=== PATIENT | female | born 1960 | race Caucasian/White ===

== ENCOUNTER 2017-10-20 11:21 | Emergency (ER) | payer BC ==
[~2017-10-20] VITALS: Ht 154.9 cm; Wt 91.6 kg
[2017-10-20 11:33] VITALS: BP 129/71
--- NOTE | 2017-10-20 11:43 | NUR ---
PT AMBULATED TO BED 9 Addendum: 10/20/17 at 1148 by [facility] BED 10
[2017-10-20] MEDS ORDERED: NACL 0.9% 500 ML IV ONE (11:44)
[2017-10-20] MEDS ORDERED: KETOROLAC 30 MG/ML VIAL IVP ONE (11:45)
--- NOTE | 2017-10-20 11:48 | NUR ---
c/o constant right groin pain with occasionally radiating to right flank x yesterday. Patient also reports of hematuria and diarrhea. Patient denies any fevers or n/v. DENIES N/V/D; SKIN IS PINK/WARM/DRY; AAOX4 WITH EVEN AND STEADY GAIT; LUNGS CLEAR BL; HR EVEN AND REGULAR; PT DENIES ANY FEVER, CP, SOB, OR COUGH AT THIS TIME; PATIENT STATES PAIN OF 6/10 AT THIS TIME; VSS; PATIENT POSITIONED FOR COMFORT; HOB ELEVATED; BEDRAILS UP X2; BED DOWN. ER MD MADE AWARE OF PT STATUS.
[2017-10-20] MEDS ORDERED: fentaNYL 0.05 MG/ML VIAL IVP ONE ×2 (13:15→15:15)
--- NOTE | 2017-10-20 13:45 | NUR ---
PT RESTING IN BED, STATED PAIN RELIVED.
[2017-10-20 14:16] LABS: APPEARANCE,URINE HAZY (CLEAR); BILIRUBIN,URINE NEGATIVE (NEGATIVE); BLOOD, URINE 3+ (NEGATIVE); COLOR,URINE YELLOW (YELLOW); LEUKOCYTE ESTERASE ,URINE NEGATIVE (NEGATIVE); NITRITE, URINE NEGATIVE (NEGATIVE); UGLUCOSE NEGATIVE (NEGATIVE)
[2017-10-20 14:37] LABS: RBC,URINE 50-80 /HPF (0-5); WBC,URINE 0-5 (RARE) /HPF (0-5)
[2017-10-20 15:45] VITALS: BP 140/84
--- NOTE | 2017-10-20 15:45 | NUR ---
Patient discharged with v/s stable. Written and verbal after care instructions given and explained. Patient alert, oriented and verbalized understanding of instructions. Ambulatory with steady gait. All questions addressed prior to discharge. ID band removed. Patient advised to follow up with PMD. Rx of TRAMADOL AND MOTRIN given. Patient educated on indication of medication including possible reaction and side effects. Opportunity to ask questions provided and answered. IV D/C INTACT.
== END 2017-10-20 15:45 | disposition home or self-care (01) ==
LOC: MED 11:21
DX: N20.0 Calculus of kidney (principal); Z88.0 Allergy status to penicillin; Z88.2 Allergy status to sulfonamides
CPT/HCPCS: 74176; 81001; 81025; 82948; 96361; 96374; 96375; 96376; 99285; J1885; J3010; J7030

== ENCOUNTER 2017-10-25 08:30 | Emergency (ER) | payer BC ==
[~2017-10-25] VITALS: Ht 172.7 cm; Wt 90.7 kg
[2017-10-25 08:39] VITALS: BP 103/63
--- NOTE | 2017-10-25 08:44 | NUR ---
PT TAKEN TO BED 12.
--- NOTE | 2017-10-25 08:50 | NUR ---
PATIENT PRESENTS TO ED WITH RLQ PAIN AND HEMATURIA. PATIENT WAS SEEN IN OUR ER 4 DAYS AGO FOR SAME ISSUE. PT STATES SHE IS STILL SEEING BLOOD IN HER URINE AND PAIN HAS NOT SUBSIDED. PATIENT REPORTS NAUSEA, VOMITING 1 DAY AGO, AND DIARRHEA 2 DAYS AGO; SKIN IS PINK/WARM/DRY; AAOX4 WITH EVEN AND STEADY GAIT; LUNGS CLEAR BL; HR EVEN AND REGULAR; PT DENIES ANY FEVER, CP, SOB, OR COUGH AT THIS TIME; PATIENT STATES PAIN OF 6/10 AT THIS TIME; VSS; PATIENT POSITIONED FOR COMFORT; HOB ELEVATED; BEDRAILS UP X2; BED DOWN. ER MD MADE AWARE OF PT STATUS.
[2017-10-25] MEDS ORDERED: ONDANSETRON 4 MG/2 ML VIAL IVP ONE (09:00)
[2017-10-25] MEDS ORDERED: NACL 0.9% 1,000 ML IV ONE ×2 (09:00→10:05)
[2017-10-25] MEDS ORDERED: KETOROLAC 30 MG/ML VIAL IVP ONE (09:00)
[2017-10-25 09:36] LABS: BILIRUBIN,URINE 2+ (NEGATIVE); BLOOD, URINE 3+ (NEGATIVE); COLOR,URINE YELLOW (YELLOW); LEUKOCYTE ESTERASE ,URINE NEGATIVE (NEGATIVE); NITRITE, URINE NEGATIVE (NEGATIVE); UGLUCOSE NEGATIVE (NEGATIVE)
[2017-10-25 09:43] LABS: ANION GAP 16.5 (8-16); CARBON DIOXIDE 22.4 mmol/L (21-32); CREATININE 0.8 mg/dL (0.6-1.3); POTASSIUM 3.9 mmol/L (3.5-5.1)
[2017-10-25] MEDS ORDERED: MORPHINE SULFATE 4 MG/ML SYR IVP ONE ×2 (09:55→11:20)
[2017-10-25 09:58] LABS: ALBUMIN 3.2 g/dL (3.4-5.0); TOTAL BILIRUBIN 0.4 mg/dL (0.0-1.0)
[2017-10-25 10:10] LABS: BASOPHILS # (AUTO) 0.3 K/uL (0.00-0.22); BASOPHILS % (AUTO) 1.2 % (0.0-2.0); EOSINOPHILS # (AUTO) 0.5 K/uL (0-0.4); EOSINOPHILS % (AUTO) 2.4 % (0.0-4.0); HEMATOCRIT 38.9 % (36-48); LYMPHOCYTES # (AUTO) 3.5 K/uL (2.5-16.5); LYMPHOCYTES % (AUTO) 15.7 % (20.5-51.1); MEAN CORPUSCULAR HEMOGLOBIN 27 pg (27-31); MEAN CORPUSCULAR HGB CONC 31 g/dL (33-37); MEAN CORPUSCULAR VOLUME 86.6 fL (80-94); MONOCYTES # (AUTO) 1.1 K/uL (0.8-1.0); NEUTROPHILS # (AUTO) 16.7 K/uL (1.8-7.7); NEUTROPHILS % (AUTO) 75.7 % (42.2-75.2); PLATELET COUNT (AUTO) 333 K/uL (140-450); RED BLOOD CELL COUNT(AUTO) 4.48 MIL/uL (4.20-5.40); RED CELL DISTRIBUTION WIDTH 17.1 % (11.6-13.7)
[2017-10-25 10:12] LABS: APPEARANCE,URINE SLIGHTLY HAZY (CLEAR)
[2017-10-25 10:14] LABS: RBC,URINE TOO NUMEROUS TO COUN /HPF (0-5); WBC,URINE 0-5 (RARE) /HPF (0-5)
[2017-10-25] MEDS ORDERED: CEFEPIME 1,000 MG in DEXTROSE 5% 50 ML IV ONE (10:20)
[2017-10-25] MEDS ORDERED: METO25TA PO (10:27)
[2017-10-25] MEDS ORDERED: TRAZ-286 PO (10:27)
[2017-10-25] MEDS ORDERED: SITA100T8 PO (10:27)
[2017-10-25] MEDS ORDERED: LIP80 PO (10:27)
[2017-10-25] MEDS ORDERED: INSU100S22 SC (10:27)
[2017-10-25] MEDS ORDERED: CEFEPIME 1,000 MG VIAL ONE (10:29)
--- NOTE | 2017-10-25 10:45 | NUR ---
SPOKE WITH LUTHER AT [facility], SHE ADVISED INSURANCE WOULD NOT AUTHORIZE ADMIT. ADVISED DR. SIDHU.
--- NOTE | 2017-10-25 11:00 | NUR ---
SPOKE WITH GARRY EVENT MGR AT [facility]. SHE WANTED UPDATE ON PATIENT'S VITALS. ADVISED A CONTRACTED DOCTOR WOULD BE GETTING IN TOUCH WITH OUR ER DOCTOR TO SPEAK ABOUT THE PATIENT. ADVISED DR. SIDHU.
[2017-10-25] MEDS ORDERED: NACL 0.9% 1,000 ML IV SCH (11:16)
[2017-10-25] MEDS ORDERED: ACETAMINOPHEN 325 MG TAB PO PRN (11:20)
[2017-10-25] MEDS ORDERED: ONDANSETRON 4 MG/2 ML VIAL IVP PRN (11:20)
[2017-10-25] MEDS ORDERED: MORPHINE SULFATE 4 MG/ML SYR IVP PRN (11:20)
[2017-10-25] MEDS ORDERED: HYDROcodone/APAP 5/325 MG 1 TAB TAB PO PRN (11:20)
--- NOTE | 2017-10-25 11:44 | NUR ---
MEME UPDATED ON HER STATUS; SHE IS WAITING FOR THE [employer]IC NURSE ON TELE; WARM BLANKET PROVIDED. PLACED IN POSITION OF COMFORT. ONE SIDE RAIL UP. LIGHTS DIMMED IN ROOM. CALL LIGHT WITHIN REACH. ALL NEEDS ADDRESSED.
--- NOTE | 2017-10-25 12:50 | NUR ---
Patient will be admitted to care of Dr. Clark. Admited to Med/Surg. Will go to room 104-A. Belongings list completed. All belongings placed into a bag and sent with patient. Pt transferred to the floor via w/c. Report given to Yeison FRANCISCO.
--- NOTE | 2017-10-25 12:54 | NUR ---
Pt transferred to Med/Surg via .
[2017-10-25 13:30] VITALS: BP 115/64
--- NOTE | 2017-10-25 13:30 | NUR ---
RECEIVED BEDSIDE REPORT FROM ER NURSE, PT IS AAOX4. AMBULATORY. [place] SPEAKING. NO S/S OF DISTRESS NOTED ON ROOM AIR, IV TO L AC 20G, INTACT, PATENT, FLUSHED WELL. PT CC RIGHT FLANK PAIN 6/10, N/V X 5DAYS. MRSA DONE. ORIENTED PT TO ROOM. VITALS TAKEN. INITIAL ASSESSMENT DONE, ALL SAFETY PRECAUTION MET WILL CONTINUE TO MONITOR.
--- NOTE | 2017-10-25 14:10 | NUR ---
PT'S IV PUMP BEEPING FREQUENTLY, WILL START A NEW IV.
--- NOTE | 2017-10-25 14:40 | NUR ---
NS BOLUS FINISHED. NEW IV CATH LEFT WRIST 22 G. NEW NS 1L BAG STARTED AT 100ML/HR. Addendum: 10/25/17 at 1932 by Benedicto Eldridge RN 1L NS BOLUS FINISHED. NEW IV CATH LEFT WRIST 22 G. NEW NS 1L BAG STARTED AT 100ML/HR.
[2017-10-25] MEDS ORDERED: DEXTROSE 50% 50 ML SYR IVP PRN (14:55)
[2017-10-25] MEDS ORDERED: INSULIN LISPRO SLIDING SCALE 100 UNITS/ML VIAL SUBQ PRN (14:55)
--- NOTE | 2017-10-25 15:11 | NUR ---
DR DOHERTY STATED THAT HE GOT A TEXT FROM GARRY PHILLIPS OF [facility] THAT SHE WANTS THE PATIENT TO BE TRANSFERRED TO THE CONTRACTED [facility] ACCEPTING DR WILL BE DR MOREJON
--- NOTE | 2017-10-25 15:59 | NUR ---
LEVOFLOXACIN 50ML IVPB FINISHED. Addendum: 11/09/17 at 1351 by Benedicto Eldridge RN WRONG PT.
[2017-10-25 16:00] VITALS: BP 118/68
[2017-10-25] MEDS ORDERED: LEVOFLOXACIN 500 MG/D5W PREMIX 100 ML IV SCH (16:00)
--- NOTE | 2017-10-25 16:29 | NUR ---
LEVOFLOXACIN 100ML IVPB FINISHED. PT TOLERATED WELL. NO S/S ANAPHYLACTIC RXN NOTED.
[2017-10-25] MEDS ORDERED: BLOOD GLUCOSE MONITORING 1 DEV DEV FS SCH (16:30)
[2017-10-25 17:12] LABS: APPEARANCE,URINE CLEAR (CLEAR); BILIRUBIN,URINE 1+ (NEGATIVE); BLOOD, URINE NEGATIVE (NEGATIVE); COLOR,URINE YELLOW (YELLOW); LEUKOCYTE ESTERASE ,URINE NEGATIVE (NEGATIVE); NITRITE, URINE NEGATIVE (NEGATIVE); UGLUCOSE NEGATIVE (NEGATIVE)
--- NOTE | 2017-10-25 18:05 | NUR ---
CALLED [phone] EX [phone]. REPORT GIVEN TO NURSE ANTHONY. PT GOING TO RM [address] MOREJON. STU[facility]O [facility] TIME 1929 BY [facility].
--- NOTE | 2017-10-25 18:32 | NUR ---
NO VOMITING SINCE PT GOT TO THE FLOOR. PT HAD DINNER, CLEAR LIQ DIET. NO S/S OF ACUTE DISTRESS.
--- NOTE | 2017-10-25 18:59 | NUR ---
PT HEPLOCKED, 350ML NS INFUSED.
--- NOTE | 2017-10-25 19:00 | NUR ---
DISCHARGE TEACHING PROVIDED. PT VERBALIZED UNDERSTANDING. DISCHARGE PACKET WITH CD PROVIDED.
--- NOTE | 2017-10-25 19:00 | NUR ---
PT TRANSFERRED TO [facility]. PT IV CATHS ARE HEP LOCKED. PT LEFT WITH ALL HER BELONGINGS. PT IN STABLE CONDITION.
[2017-10-25] MEDS ORDERED: INSULIN LANTUS 100 UNITS/ML 10 ML VIAL SUBQ SCH (21:00)
[2017-10-25] MEDS ORDERED: traZODone 50 MG TAB PO SCH (21:00)
[2017-10-25] MEDS ORDERED: METOPROLOL 50 MG TAB PO SCH (21:00)
[2017-10-26] MEDS ORDERED: ENOXAPARIN 40 MG/0.4 ML SYR SUBQ SCH (09:00)
== END 2017-10-25 19:00 | disposition short-term general hospital (02) ==
LOC: MED 08:30 → MTU 11:20
PROVIDERS: ADMIT Internal Medicine; ATTEND Internal Medicine
DX: R10.9 Unspecified abdominal pain (principal); R11.2 Nausea with vomiting, unspecified; N20.1 Calculus of ureter; E86.0 Dehydration; E11.9 Type 2 diabetes mellitus without complications; I10 Essential (primary) hypertension; N39.0 Urinary tract infection, site not specified; M51.36 Other intervertebral disc degeneration, lumbar region; K57.90 Diverticulosis of intestine, part unspecified, without perforation or abscess without bleeding; E66.9 Obesity, unspecified; Z68.30 Body mass index [BMI] 30.0-30.9, adult
CPT/HCPCS: 36415; 80053; 81001; 81003; 81025; 82150; 82948; 83605; 83690; 84484; 85025; 87040; 87081; 87086; 93005; 96361; 96365; 96367; 96375; 96376; 99285; G0378; J0692; J1815; J1885; J1956; J2270; J2405; J7030; J7060

== ENCOUNTER 2018-06-15 17:32 | Observation (INO) | payer BC ==
[~2018-06-15] VITALS: Ht 172.7 cm; Wt 100.7 kg
[~2018-06-15 17:32] MED LIST: INSU100S22 SC; LIP80 PO; METO25TA PO; SITA100T8 PO; TRAZ-343 PO
[2018-06-15 17:39] VITALS: BP 141/92
--- NOTE | 2018-06-15 17:49 | NUR ---
Patient ambulated to bed 8. RN evaluating patient at bedside.
--- NOTE | 2018-06-15 18:05 | NUR ---
58 YO F BIB SELF W/ C/O LEFT MID BACK PAIN RADIATING TO LEFT GROIN X 2 DAYS. PT REPORTS THAT SHE HAS HX W/ KIDNEY STONES AND STATES THIS FEELS MORE LIKE A KIDNEY STONE THAN A UTI. DENIES DYSURIA, REPORTS SMALL AMOUNT OF SPOTTING/HEMATURIA. REPORTS NAUSEA, DENIES VOMITING. INTERMITTENT DIARRHEA. DENIES FEVER. HX KIDNEY STONES, 4 LITHOTRIPSIES/UTEROSCOPY (LAST 2016), HYSTERECTOMY, 10 KNEE SURGERIES, 3 C-SEC, COPD, DM2, HTN, RA, HIGH CHOLESTROL, DEGENERATIVE DISC DISEASE RX LIPITOR, OMEPRAZOLE, TRAZADONE, ASA, PLAQUERIL, METOPROLOL, LANTUS, VENTOLIN, PATIENT STATES PAIN OF 7/10 AT THIS TIME. PATIENT POSITIONED FOR COMFORT; HOB ELEVATED; BEDRAILS UP X2; BED DOWN. ER MD MADE AWARE OF PT STATUS.
[2018-06-15] MEDS ORDERED: NACL 0.9% 1,000 ML IV SCH (18:22)
[2018-06-15] MEDS ORDERED: KETOROLAC 30 MG/ML VIAL IVP ONE ×2 (18:25→22:15)
[2018-06-15 19:02] LABS: RED BLOOD CELL COUNT(AUTO) 5.06 MIL/uL (4.20-5.40)
[2018-06-15 19:04] LABS: HEMATOCRIT 40.1 % (36-48); HEMOGLOBIN 12.2 g/dL (12.0-16.0); MEAN CORPUSCULAR HEMOGLOBIN 24 pg (27-31); MEAN CORPUSCULAR HGB CONC 30 g/dL (33-37); MEAN CORPUSCULAR VOLUME 79.2 fL (80-94); PLATELET COUNT (AUTO) 308 K/uL (140-450); RED CELL DISTRIBUTION WIDTH 18.4 % (11.6-13.7); WHITE BLOOD COUNT (AUTO) 15.4 K/uL (4.8-10.8)
[2018-06-15 19:18] LABS: ANION GAP 10.3 (8-16); CARBON DIOXIDE 26.6 mmol/L (21-32); CREATININE 0.6 mg/dL (0.6-1.3); POTASSIUM 3.9 mmol/L (3.5-5.1)
[2018-06-15 19:19] LABS: APPEARANCE,URINE HAZY (CLEAR); BILIRUBIN,URINE NEGATIVE (NEGATIVE); BLOOD, URINE 3+ (NEGATIVE); COLOR,URINE YELLOW (YELLOW); LEUKOCYTE ESTERASE ,URINE NEGATIVE (NEGATIVE); NITRITE, URINE NEGATIVE (NEGATIVE); UGLUCOSE NEGATIVE (NEGATIVE)
[2018-06-15 19:25] LABS: ALBUMIN 3.6 g/dL (3.4-5.0); TOTAL BILIRUBIN 0.2 mg/dL (0.0-1.0)
--- NOTE | 2018-06-15 19:27 | NUR ---
Pt report given to CHANCE FRANCISCO. Transfer of care at this time.
[2018-06-15 19:28] LABS: EOSINOPHILS % (MANUAL) 6 % (0-4); LYMPHOCYTES % (MANUAL) 36 % (20-46); MONOCYTES % (MANUAL) 8 % (5-12)
[2018-06-15 19:32] LABS: RBC,URINE >100 /HPF (0-5); WBC,URINE 0-5 (RARE) /HPF (0-5)
[2018-06-15] MEDS ORDERED: MORPHINE SULFATE 4 MG/ML SYR IVP ONE ×2 (20:40→22:15)
--- NOTE | 2018-06-15 21:28 | NUR ---
Patient okay to eat per Dr. Euceda. Pt given apple juice and crackers.
--- NOTE | 2018-06-15 22:48 | NUR ---
PT FINISHED DINNER, AND REPORTS THAT PAIN IS DOWN TO 7/10. VSS. SAFETY PRECAUTIONS IN PLACE. WILL CONTINUE TO MONITOR
--- NOTE | 2018-06-15 23:11 | NUR ---
RECIEVED X-RAY CD FOR PATIENT.
--- NOTE | 2018-06-16 00:37 | NUR ---
PT IS RESTING IN BED. PT STATES THAT PAIN IS AT A MANAGEBLE 4/10. VSS. SAFETY PRECAUTIONS IN PLACE, WILL CONTINUE TO MONITOR.
[2018-06-16] MEDS ORDERED: LIP80 PO (01:32)
[2018-06-16] MEDS ORDERED: OMEP40EC14 PO (01:34)
[2018-06-16] MEDS ORDERED: TRAZ-343 PO (01:35)
[2018-06-16] MEDS ORDERED: ASPI81EC97 PO (01:35)
[2018-06-16] MEDS ORDERED: HYDR200T5 PO (01:36)
[2018-06-16] MEDS ORDERED: METO50TA20 PO (01:37)
[2018-06-16] MEDS ORDERED: ALBU0.0912 IH (01:38)
[2018-06-16] MEDS ORDERED: INSU100S22 SUBQ (01:38)
[2018-06-16] MEDS ORDERED: MORPHINE SULFATE 4 MG/ML SYR IVP ONE (01:45)
[2018-06-16] MEDS: NACL 0.9% 1,000 ML IV SCH ×2 (01:48→11:48)
--- NOTE | 2018-06-16 01:48 | NUR ---
IVF STARTED AND INFUSING WELL.
[2018-06-16] MEDS ORDERED: LEVOFLOXACIN 500 MG/D5W PREMIX 100 ML IV SCH (01:50)
[2018-06-16] MEDS ORDERED: ACETAMINOPHEN 325 MG TAB PO PRN (01:50)
[2018-06-16] MEDS ORDERED: ONDANSETRON 4 MG/2 ML VIAL IVP PRN (01:50)
--- NOTE | 2018-06-16 02:20 | NUR ---
PT ARRIVED AT UNIT VIA GURNEY, PT AMBULATED TO BED, TOLERATED WELL, REPORT RECEIVED FROM ER NURSE, IV TO L AC 20G PATENT, INTACT, DATED, PT ON ROOM AIR, NO SOB, PT STATED HAVING PAIN 9/10 TO THE L FLANK, WILL MEDICATE, V/S TAKEN, WNL, MRSA SWAB TAKEN, INITIAL ASSESSMENT DONE, ALL SAFETY PRECAUTION MET, ORIENT PT TO ROOM, BED, CALL LIGHT, AND PHONE, PT STATED UNDERSTANDING, PT AMBULATED TO RESTROOM THEN BACK TO BED, TOLERATED WELL, LEFT RESTING, CALL LIGHT WITHIN REACH, NO DISTRESS NOTED, WILL CONTINUE TO MONITOR.
--- NOTE | 2018-06-16 02:25 | NUR ---
Patient will be admitted to care of DR HAYNES. Admited to MED/SURG VIA GURNEY WITH VSS. Will go to room 112A. Belongings list completed. Report to COLE FRANCISCO.
[2018-06-16] MEDS: MORPHINE SULFATE 4 MG/ML SYR IVP PRN ×3 (02:53→12:32)
--- NOTE | 2018-06-16 02:53 | NUR ---
MEDICATION PER MD ORDER ADMINISTERED, PAIN MEDICATION ADMINISTERED, PT C/O PAIN 02/27, NO DISTRESS NOTED, CALL LIGHT WITHIN REACH, WILL CONTINUE TO MONITOR.
--- NOTE | 2018-06-16 02:54 | NUR ---
LEVAQUIN IVPB STARTED AND INFUSING WELL.
[2018-06-16 03:00] VITALS: BP 130/70
--- NOTE | 2018-06-16 03:54 | NUR ---
IVPB LEVAQUIN FINISHED. NO REACTION NOTED.
--- NOTE | 2018-06-16 04:20 | NUR ---
CHECKED ON PT, PT SLEEPING, NO DISTRESS NOTED, CALL LIGHT WITHIN REACH, WILL CONTINUE TO MONITOR.
--- NOTE | 2018-06-16 07:26 | NUR ---
ENDORSED PT TO DAY SHIFT NURSE FRANCI RN, PT STABLE, NO DISTRESS NOTED, CALL LIGHT WITHIN REACH.
--- NOTE | 2018-06-16 07:32 | NUR ---
RECEIVED BEDSIDE REPORT FROM STICKER ON RN. RESTING IN BED, AOX4. PT IS AMBULATORY WITHOUT ASSIST. SKIN INTACT. NO C/O PAIN OR DISCOMFORT AT THIS TIME. LUNGS CTA. HEART RHYTHM REGULAR. VITALS STABLE. IV SITE PATENT AND ASYMPTOMATIC, INFUSING IVF PER MD ORDERS. UPDATED BOARD AND DISCUSSED PLAN OF CARE WITH PT. PT VERBALIZED COMPLETE UNDERSTANDING. ALL SAFETY PRECAUTIONS IN PLACE, WILL CONTINUE TO MONITOR.
[2018-06-16 08:00] VITALS: BP 132/82
--- NOTE | 2018-06-16 08:35 | NUR ---
PATIENT HAS BEEN SCREENED AND CATEGORIZED MODERATE NUTRITION RISK. PATIENT WILL BE SEEN WITHIN 3-5 DAYS OF ADMISSION. 06/18/18 06/20/[address]
[2018-06-16] MEDS ORDERED: ENOXAPARIN 40 MG/0.4 ML SYR SUBQ SCH (09:00)
--- NOTE | 2018-06-16 10:32 | NUR ---
PT SEEN AMBULATING IN [facility], GAIT EVEN AND STEADY WITHOUT ASSIST. WILL CONTINUE TO MONITOR.
[2018-06-16] MEDS ORDERED: ACET-787 PO (11:41)
[2018-06-16] MEDS ORDERED: TAMS0.4C96 PO (11:41)
--- NOTE | 2018-06-16 13:40 | NUR ---
ALL DISCHARGE PAPERWORK, INCLUDING INSTRUCTIONS TO FOLLOW UP WITH PCP AND UROLOGIST AND NEW RX, GIVEN TO PATIENT. NEW PRESCRIPTION TEACHING AND MED RECON TEACHING GIVEN. PT VERBALIZED COMPLETE UNDERSTANDING OF ALL D/C TEACHING. ID BANDS REMOVED. IV SITE REMOVED WITH MINIMAL BLOOD LOSS AND LUMEN COMPLETELY INTACT. FLU VACCINE AND PNEUMONIA VACCINE UP TO DATE. ALL PERSONAL BELONGINGS ARE WITH PATIENT. LEFT FROM UNIT AND WILL D/C TO HOME WITH FAMILY MEMBER AT SIDE.
== END 2018-06-16 13:40 | disposition home or self-care (01) ==
LOC: MED 17:32 → INTOOBSV 06-16 01:48 → MTU 06-16 01:48 → UNDOADMOB 06-16 01:48 → MTU 06-16 11:26
PROVIDERS: ADMIT Internal Medicine Pulmonary Disease; ATTEND Internal Medicine Pulmonary Disease
DX: N20.0 Calculus of kidney (principal); I10 Essential (primary) hypertension; E78.5 Hyperlipidemia, unspecified; E11.9 Type 2 diabetes mellitus without complications; F17.210 Nicotine dependence, cigarettes, uncomplicated; J84.10 Pulmonary fibrosis, unspecified; Z87.442 Personal history of urinary calculi; Z90.710 Acquired absence of both cervix and uterus; Z90.81 Acquired absence of spleen; Z96.652 Presence of left artificial knee joint
CPT/HCPCS: 36415; 74176; 80053; 81001; 83970; 85025; 87081; 96365; 96372; 96375; 96376; 99285; G0378; J1650; J1885; J1956; J2270; J7030; 96361; 96374